=== PATIENT | male | born 1990 | race African-American/Black ===

== ENCOUNTER 2018-08-31 01:51 | Observation (INO) ==
[2018-08-31] MEDS ORDERED: ALBUTEROL/IPRATROPIUM 3 ML NEB RESP TX STA (03:15)
[2018-08-31] MEDS ORDERED: methylPREDNISolone SOD SUC 125 MG/2 ML VIAL IV STA (03:15)
[2018-08-31 03:29] LABS: Basophils # 0.1 10*3/uL (0.0-0.2); Basophils % 0.8 % (0.0-0.8); Eosinophils # 0.1 10*3/uL (0.0-0.87); Eosinophils % 0.8 % (0.00-10.9); Hemoglobin 13.3 GM/DL (14.0-18.0); Immature Granulocytes % 0.3 %; Immature Granulocytes Absolute 0.02 #; Lymphocytes # 1.4 10*3/uL (1.4-4.0); Lymphocytes % 21.3 % (21.2-54.2); Mean Corpuscular HGB Conc 31.7 GM/DL (32-36); Mean Corpuscular Hemoglobin 28 PG (27-34); Mean Platelet Volume 11.4 FL (9.6-12.0); Monocytes # 0.7 10*3/uL (0.11-0.8); Monocytes % 9.9 % (1.7-12.7); Neutrophils # 4.5 10*3/uL (1.4-7.4); Neutrophils % 66.9 % (38.7-73.9); Platelet Count 214 T/CUMM (130-400); Red Blood Count 4.83 MC/CUMM (3.8-5.5); White Blood Count 6.7 T/CUMM (4-12)
[2018-08-31 03:40] LABS: ABG Base Excess 1.8 MMOL/L (-2.5-2.5); ABG HCO3 25.9 MMOL/L (20-26); ABG Oxygen Saturation 94.9 % (95-100); ABG PCO2 34.9 MM HG (35-48); ABG PH 7.464 (7.35-7.45); ABG PO2 72.2 MM HG (80-95); ABG TCO2 21.6 MMOL/L (23-27)
[2018-08-31 03:49] LABS: Albumin 3.3 G/DL (3.4-5.0); Bilirubin,Total 0.8 MG/DL (0.2-1.0); Calcium 8.5 MG/DL (8.5-10.1); Osmolality,Calculated 280.1 MOS/KG (273-304); Potassium 3.5 MMOL/L (3.5-5.1); Total Protein 7.1 G/DL (6.4-8.3)
[2018-08-31] MEDS ORDERED: NITROGLYCERIN SL 0.4 MG TABLET SL STA (04:07)
[2018-08-31] MEDS ORDERED: ASPIRIN EC 325 MG TABLET PO STA (04:07)
[2018-08-31] MEDS ORDERED: guaiFENesin 200 MG/10 ML UDCUP PO PRN (05:56)
[2018-08-31] MEDS ORDERED: NITROGLYCERIN SL 0.4 MG TABLET SL PRN (06:14)
[2018-08-31 06:18] LABS: Apearance,Urine CLEAR (Clear); Bilirubin,Urine Negative (Negative); Blood, Urine Negative (Negative); Glucose,Urine (UA) Negative (Negative); Ketones,Urine 5 mg/dL (Negative); Mucus,Urine Occasional /LPF (Occasional); Nitrite,Urine Negative (Negative); Protein,Urine 30 MG/DL; RBC,Urine 1 /HPF (0-4); Sperm,Urine Few /HPF (Negative); Squamous Epithelial Cell,Urine Occasional /HPF (0-10); Urine Color Yellow (Yellow); Urine Specific Gravity 1.026 (1.001-1.035); WBC,Urine <1 /HPF (0-6)
[2018-08-31] MEDS ORDERED: ENOXAPARIN 100 MG/ML SYRINGE SUBCUT ONE (07:27)
[2018-08-31] MEDS ORDERED: ENOXAPARIN 40 MG/0.4 ML SYRINGE ONE (07:28)
[2018-08-31] MEDS: ENOXAPARIN 150 MG/ML SYRINGE SUBCUT SCH ×2 (07:37→18:24)
[2018-08-31] MEDS ORDERED: hydroCHLOROthiazide 25 MG TABLET PO SCH (09:00)
[2018-08-31] MEDS ORDERED: amLODIPine 10 MG TABLET PO SCH (09:00)
[2018-08-31] MEDS: cefTRIAXone 1,000 MG in SYRINGE 1 EACH IV SCH (09:29)
[2018-08-31] MEDS: predniSONE 20 MG TABLET PO SCH (09:30)
[2018-08-31] MEDS: CARVEDILOL 6.25 MG TABLET PO SCH ×2 (09:31→20:15)
[2018-08-31] MEDS: AZITHROMYCIN 250 MG TABLET PO SCH (09:31)
[2018-08-31] MEDS: ASPIRIN EC 325 MG TABLET PO SCH (09:31)
[2018-08-31] MEDS: PANTOPRAZOLE 40 MG TABLET PO SCH (09:31)
[2018-08-31] MEDS: POTASSIUM CHLORIDE 20 MEQ TABLET PO SCH ×2 (10:52→20:15)
[2018-08-31] MEDS ORDERED: FUROSEMIDE 40 MG/4 ML VIAL IV ONE ×2 (12:00→18:00)
[2018-08-31] MEDS ORDERED: LISINOPRIL 5 MG TABLET PO ONE (18:00)
[2018-09-01] MEDS: ENOXAPARIN 150 MG/ML SYRINGE SUBCUT SCH (05:33)
[2018-09-01 06:22] LABS: Basophils % 0.1 % (0.0-0.8); Hematocrit 39.2 VOL% (42.0-52.0); Hemoglobin 12.5 GM/DL (14.0-18.0); Immature Granulocytes % 0.5 %; Immature Granulocytes Absolute 0.05 #; Lymphocytes # 1.3 10*3/uL (1.4-4.0); Lymphocytes % 12.2 % (21.2-54.2); Mean Corpuscular HGB Conc 31.9 GM/DL (32-36); Mean Corpuscular Hemoglobin 28 PG (27-34); Mean Corpuscular Volume 86.3 FL (87-102); Mean Platelet Volume 11.6 FL (9.6-12.0); Monocytes # 1.1 10*3/uL (0.11-0.8); Monocytes % 10.2 % (1.7-12.7); Neutrophils # 8.1 10*3/uL (1.4-7.4); Platelet Count 241 T/CUMM (130-400); Red Blood Count 4.54 MC/CUMM (3.8-5.5); Red Cell Distribution Width 14.1 % (9.3-17.3); White Blood Count 10.5 T/CUMM (4-12)
[2018-09-01 06:40] LABS: Calcium 8.6 MG/DL (8.5-10.1); Osmolality,Calculated 279.5 MOS/KG (273-304); Potassium 3.6 MMOL/L (3.5-5.1)
[2018-09-01] MEDS: cefTRIAXone 1,000 MG in SYRINGE 1 EACH IV SCH (08:14)
[2018-09-01] MEDS ORDERED: FUROSEMIDE 40 MG TABLET PO SCH (09:00)
[2018-09-01] MEDS ORDERED: LISINOPRIL 5 MG TABLET PO SCH (09:00)
[2018-09-01] MEDS: AZITHROMYCIN 250 MG TABLET PO SCH (09:08)
[2018-09-01] MEDS: PANTOPRAZOLE 40 MG TABLET PO SCH (09:08)
[2018-09-01] MEDS: predniSONE 20 MG TABLET PO SCH (09:08)
[2018-09-01] MEDS: POTASSIUM CHLORIDE 20 MEQ TABLET PO SCH (09:09)
[2018-09-01] MEDS: ASPIRIN EC 325 MG TABLET PO SCH (09:09)
[2018-09-01] MEDS: CARVEDILOL 6.25 MG TABLET PO SCH (09:09)
[2018-09-01 11:22] VITALS: BP 126/75
[2018-09-01 14:11] LABS: Hepatitis A Ab IgM Quant 0.18 Index; Hepatitis A Ab IgM Result Negative (Negative); Hepatitis B Core IgM Quant 0.12 Index; Hepatitis B Core IgM Result Negative (Negative); Hepatitis B Surface Ag Quant < 0.10 Index; Hepatitis B Surface Ag Result Negative (Negative); Hepatitis C Virus Ab Quant 0.02 Index; Hepatitis C Virus Ab Result Negative (Negative)
== END 2018-09-01 13:00 | disposition home or self-care (01) ==
LOC: SUATTDRO → N.EDINP 01:51 → N.ED 01:51 → SUATTDRO 05:37 → N.EDINP 08:09 → N.5E 08:38
PROVIDERS: ADMIT Hospitalist; ATTEND Internal Medicine Nephrology

== ENCOUNTER 2022-06-06 20:56 | Inpatient (IN) ==
[2022-06-06] MEDS ORDERED: LABETALOL 20 MG/4 ML SYRINGE IV STA ×2 (21:14→22:13)
[2022-06-06] MEDS ORDERED: ASPIRIN 325 MG TABLET PO STA (21:14)
[2022-06-06] MEDS ORDERED: FUROSEMIDE 20 MG/2 ML VIAL IV STA (21:14)
[2022-06-06] MEDS ORDERED: FUROSEMIDE 40 MG/4 ML VIAL IV STA (21:18)
[2022-06-06 21:21] LABS: Basophils # 0.1 10*3/uL (0.0-0.2); Basophils % 0.9 % (0.0-0.8); Eosinophils # 0.1 10*3/uL (0.0-0.87); Eosinophils % 1.3 % (0.00-10.9); Hemoglobin 14.2 GM/DL (14.0-18.0); Immature Granulocytes % 0.3 %; Immature Granulocytes Absolute 0.02 #; Lymphocytes # 2.4 10*3/uL (1.4-4.0); Lymphocytes % 30.2 % (21.2-54.2); Mean Corpuscular HGB Conc 31.6 GM/DL (32-36); Mean Corpuscular Volume 87.5 FL (87-102); Mean Platelet Volume 11.8 FL (9.6-12.0); Monocytes # 0.4 10*3/uL (0.11-0.8); Monocytes % 5.5 % (1.7-12.7); Neutrophils % 61.8 % (38.7-73.9); Platelet Count 274 T/CUMM (130-400); Red Blood Count 5.14 MC/CUMM (3.8-5.5); Red Cell Distribution Width 13.5 % (9.3-17.3); White Blood Count 7.8 T/CUMM (4-12)
[2022-06-06 21:35] LABS: Albumin 3.5 G/DL (3.4-5.0); Bilirubin,Total 0.8 MG/DL (0.20-1.00); Calcium 8.9 MG/DL (8.5-10.1); Osmolality,Calculated 283.1 MOS/KG (273-304); Total Protein 7.2 G/DL (6.4-8.2)
[2022-06-06 21:37] LABS: INR 0.9; PT Patient Result 10.5 SECS (10.1-12.1)
[2022-06-06] MEDS ORDERED: hydrALAZINE 20 MG/1 ML VIAL IV STA (22:52)
[2022-06-06] MEDS ORDERED: AZITHROMYCIN INJ 500 MG in SODIUM CHLORIDE 0.9% 250 ML IV STA (23:16)
[2022-06-06] MEDS ORDERED: cefTRIAXone 1,000 MG in SODIUM CHLORIDE 0.9% 100 ML IV STA (23:16)
[2022-06-06] MEDS ORDERED: ONDANSETRON 4 MG/2 ML VIAL IV PRN (23:36)
[2022-06-06] MEDS ORDERED: ACETAMINOPHEN 325 MG TABLET PO PRN (23:36)
[2022-06-06] MEDS ORDERED: hydrALAZINE 20 MG/1 ML VIAL IV PRN (23:36)
[2022-06-06] MEDS ORDERED: ONDANSETRON 4 MG/2 ML VIAL IV ONE (23:38)
[2022-06-07] MEDS ORDERED: MAGNESIUM SULF RIDER 2 GM/50 ML PREMIX IV PRN (00:33)
[2022-06-07] MEDS ORDERED: MAGNESIUM SULF RIDER 4 GM/100 ML PREMIX IV PRN (00:33)
[2022-06-07 06:11] LABS: Basophils % 0.4 % (0.0-0.8); Eosinophils % 0.4 % (0.00-10.9); Hematocrit 41.3 VOL% (42.0-52.0); Hemoglobin 13.2 GM/DL (14.0-18.0); Immature Granulocytes % 0.3 %; Immature Granulocytes Absolute 0.02 #; Lymphocytes # 1.3 10*3/uL (1.4-4.0); Mean Corpuscular Volume 85.7 FL (87-102); Mean Platelet Volume 11.8 FL (9.6-12.0); Monocytes # 0.6 10*3/uL (0.11-0.8); Neutrophils % 71.9 % (38.7-73.9); Platelet Count 259 T/CUMM (130-400); Red Blood Count 4.82 MC/CUMM (3.8-5.5); Red Cell Distribution Width 13.5 % (9.3-17.3)
[2022-06-07 06:28] LABS: Albumin 3.2 G/DL (3.4-5.0); Calcium 8.6 MG/DL (8.5-10.1); Potassium 3.7 MMOL/L (3.5-5.1)
[2022-06-07] MEDS: amLODIPine 5 MG TABLET PO SCH (08:26)
[2022-06-07] MEDS: PANTOPRAZOLE 40 MG TABLET PO SCH (08:26)
[2022-06-07] MEDS: carvediloL 3.125 MG TABLET PO SCH ×2 (08:26→21:09)
[2022-06-07] MEDS: FUROSEMIDE 20 MG/2 ML VIAL IV SCH ×2 (08:26→16:04)
[2022-06-07] MEDS: lisinopriL 5 MG TABLET PO SCH (08:26)
[2022-06-07] MEDS: ENOXAPARIN 40 MG/0.4 ML SYRINGE SUBCUT SCH (09:30)
[2022-06-07] MEDS ORDERED: AZITHROMYCIN INJ 500 MG in SODIUM CHLORIDE 0.9% 250 ML IV SCH (23:00)
[2022-06-07] MEDS ORDERED: cefTRIAXone 1,000 MG in SODIUM CHLORIDE 0.9% 100 ML IV SCH (23:00)
[2022-06-08 05:24] LABS: Basophils # 0.1 10*3/uL (0.0-0.2); Basophils % 0.9 % (0.0-0.8); Eosinophils # 0.1 10*3/uL (0.0-0.87); Eosinophils % 2.2 % (0.00-10.9); Hematocrit 41.8 VOL% (42.0-52.0); Hemoglobin 13.5 GM/DL (14.0-18.0); Immature Granulocytes % 0.2 %; Immature Granulocytes Absolute 0.01 #; Lymphocytes # 1.5 10*3/uL (1.4-4.0); Lymphocytes % 26.9 % (21.2-54.2); Mean Corpuscular HGB Conc 32.3 GM/DL (32-36); Mean Platelet Volume 11.9 FL (9.6-12.0); Monocytes # 0.5 10*3/uL (0.11-0.8); Monocytes % 8.5 % (1.7-12.7); Neutrophils % 61.3 % (38.7-73.9); Platelet Count 253 T/CUMM (130-400); Red Blood Count 4.86 MC/CUMM (3.8-5.5); Red Cell Distribution Width 13.4 % (9.3-17.3); White Blood Count 5.5 T/CUMM (4-12)
[2022-06-08 05:49] LABS: Calcium 8.8 MG/DL (8.5-10.1); Osmolality,Calculated 280.3 MOS/KG (273-304); Potassium 3.6 MMOL/L (3.5-5.1)
[2022-06-08] MEDS ORDERED: POTASSIUM CHLORIDE 20 MEQ TABLET PO ONE (08:21)
[2022-06-08] MEDS: lisinopriL 5 MG TABLET PO SCH (09:19)
[2022-06-08] MEDS: ENOXAPARIN 40 MG/0.4 ML SYRINGE SUBCUT SCH (09:19)
[2022-06-08] MEDS: FUROSEMIDE 20 MG/2 ML VIAL IV SCH ×2 (09:19→18:12)
[2022-06-08] MEDS: amLODIPine 5 MG TABLET PO SCH (09:19)
[2022-06-08] MEDS: carvediloL 3.125 MG TABLET PO SCH (09:19)
[2022-06-08] MEDS: PANTOPRAZOLE 40 MG TABLET PO SCH (09:20)
[2022-06-08] MEDS ORDERED: AZITHROMYCIN 250 MG TABLET PO SCH (15:00)
[2022-06-08 15:25] VITALS: BP 143/91
== END 2022-06-08 16:10 | disposition home or self-care (01) | DRG 193 ==
LOC: N.ED 20:56 → N.5E 23:36
PROVIDERS: ADMIT Internal Medicine; ATTEND Internal Medicine